=== PATIENT | female | born 1945 | race Caucasian/White ===

== ENCOUNTER → 2017-09-07 | Outpatient (CLI) | payer MEDICARE, OTHER ==
[~2017-09-07] MED LIST: AMOX-559 PO; ATOR20TA65 PO; AZI250 PO; CALC500T6 PO; CHOL10005 PO; FLAX100041 PO; FLU180SY9 IM; FLU45SYR17 IM; FLU45SYR25 IM ONLY; KET10 PO; LEVO75TA73 PO; LOR5/325 PO; OMEG500C5 PO; PNEI IM; PNEU0.5D3 IM; PRED20TA6 PO; SULF-198 PO; UBID30CA27 PO
[2017-09-07 09:53] LABS: LDL CHOLESTEROL 32 mg/dl
== END ==
LOC: LAB 09:00
PROVIDERS: ATTEND Nurse Practitioner Family
DX: E78.5 Hyperlipidemia, unspecified (principal)
CPT/HCPCS: 36415; 82040; 82247; 82310; 82374; 82435; 82465; 82565; 82947; 83718; 84075; 84132; 84155; 84295; 84450; 84460; 84478; 84520

== ENCOUNTER → 2019-01-08 | Outpatient (CLI) | payer MEDICARE, OTHER ==
[~2019-01-08] MED LIST changes: +LISI-362 PO
[2019-01-08 11:16] LABS: PLATELET COUNT, AUTOMATED 295 K/uL (150-450)
[2019-01-08 12:19] LABS: LDL CHOLESTEROL 44 mg/dl
== END ==
LOC: LAB 10:48
PROVIDERS: ATTEND Nurse Practitioner Family
DX: E78.5 Hyperlipidemia, unspecified (principal); E03.9 Hypothyroidism, unspecified; I10 Essential (primary) hypertension
CPT/HCPCS: 36415; 82040; 82247; 82310; 82374; 82435; 82465; 82565; 82947; 83718; 84075; 84132; 84155; 84295; 84443; 84450; 84460; 84478; 84520; 85025